=== PATIENT | male | born 1980 | race African-American/Black ===

== ENCOUNTER 2023-01-17 06:48 | Emergency (ER) | payer MEDICARE, SELFPAY ==
[2023-01-17 06:49] VITALS: BP 141/100; PULSE 121; RESP 18; TEMP 36; O2SAT 98; BMI 48.3
--- NOTE | 2023-01-17 07:18 | EDS_ITS ---
HPI History of Present Illness Chief Complaint: Anxiety Informant: patient Narrative Narrative: Patient states he has bad anxiety. I try to get more details from the patient but he really does not share them. He is denying any pain. He states it is just anxiety. When I ask if he has had anxiety before he states I do not know. He is denying suicidal thoughts. He denies vomiting. I have tremendous difficulty getting him to answer what would be a normal set of questions going over his current symptoms review of systems and past history. I did access his online prescribing report and see no controlled substance including no benzodiazepines. I talked to the nursing staff here as this patient came in by EMS before my arrival. But there is evidently no back story or further information. I have no report that he was being aggressive disruptive suicidal or violent. He reportedly called because he was anxious. However, due to his either unwillingness or inability to talk to me and give me details this severely limits my ability to evaluate and treat him. [facility] Medical History Anxiety Home Medications clindamycin HCl 150 mg capsule 300 mg PO 4X/DAY INFECTION ##90 01/30/15 [Rx Last Taken Unknown] hydroxyzine pamoate 25 mg capsule 50 mg (2 x 25 mg) PO TID PRN PRN Anxiety #21 CAPSULES 01/17/23 [Rx Last Taken Unknown] Allergy/AdvReac Type Severity Reaction Status Date / Time Penicillins [PCN] Allergy Unknown Verified 01/30/15 14:10 Social History Smoking Status: Current every day smoker tobacco type: cigarettes ROS ROS ED ROS Narrative Patient really will not answer all my questions. He is denying pain anywhere. He is denying suicidal thoughts. Beyond that I really cannot get a lot of information. When asked about breathing problems he states just anxiety again. Psychiatric Psychiatric: Reports anxiety EXAM Physical Exam Narrative Exam Narrative: Patient is awake alert sitting in bed. He looks comfortable. HEENT shows no sign of trauma. Neck is supple free range of motion Heart is a little bit fast at about 105. Breathing is easy unlabored he has normal saturations at 98% on room air showing no hypoxia. Patient's extremities are covered and he appears to not want me to evaluate that. Psych: Patient does seem to be anxious. He is a bit forceful and borderline aggressive. He is not at all threatening me though. But he seems very upset. He wants something for anxiety. He does not want anything else. Const Vital Signs: 01/17/23 06:49 Temperature 96.8 F L Temperature Source Temporal Pulse Rate 121 H Respiratory Rate 18 Blood Pressure 141/100 H Blood Pressure Mean 113 Pulse Ox 98 Oxygen Delivery Method Room Air MDM MDM MDM Narrative Medical decision making narrative: This patient either unwillingness or inability to give me any history limits my ability to evaluate him. He just wants something for anxiety. He does not want anything else. He is awake he is alert he is talking clearly there is no sign of neurologic deficit. No sign of trouble breathing. He denies any pains anywhere. He does seem anxious. He seems to understand and no anxiety. It sounds like he has had episodes before but I cannot get him to verify that he has been diagnosed with anxiety. I will try a dose of medicines to see if that will help him. I have no reason to hold him in the department. I have no findings of acute medical problem at this time. We will certainly keep an eye on him and do a more comprehensive in history and physical exam if he allows that. I access prior records. He has very few. I do find a nursing report from 06/01/2012 that does mention a history of bipolar. Patient has taken the Ativan. He has gotten up and walked around the department. He went to the restroom. He is awake alert and stable. He did ask for something to eat and drink which we have gotten him. We walked him a bit longer. He now verifies he does have a history of anxiety. He states he just had a bad anxiety attack and there is nothing else going on. Patient is resting quietly is much Colmer feeling better. Discharge Plan Triage Chief Complaint: Anxiety ED Provider: Delfino Salgado Dx/Rx/DC Orders Clinical Impression: Anxiety attack Instructions: ED Panic Attack Prescriptions: New hydroxyzine pamoate [hydroxyzine pamoate] 25 mg capsule 50 mg PO TID PRN PRN (Reason: Anxiety) Qty: 21 0RF No Action clindamycin HCl 150 MG capsule 300 mg PO 4X/DAY Qty: 90 0RF Rx Instructions: Primary Care Provider: Care Physician,Varsha Primary Referrals: Brittany Mccord MD [Med Staff - Active Staff] - 3-5 Days Care Physician,No Primary [Primary Care Provider] - Disposition Disposition: Home, Self Care
--- NOTE | 2023-01-17 07:18 | ED.RN ---
PT UNWILLING TO TALK TO RN OR TO PROVIDER. PERRI REPORTS NO SUICIDAL OR HOMICIDAL IDEATION. PT STATES I AM FUCKING ANXIOUS. DR. DUMONT IN TO TALK TO PT AND PT REFUSES TO TALK
[2023-01-17] MEDS: LORazepam 1 MG Tablet PO (07:27)
--- NOTE | 2023-01-17 07:31 | ED.RN ---
PT DEMANDING FOOD AND DRINK. PT WITH PRESSURED SPEECH AND DEMANDING MULTIPLE THINGS
[2023-01-17 09:23] VITALS: RESP 16
== END 2023-01-17 09:24 | disposition home or self-care (01) ==
PROVIDERS: Emergency Provider Emergency Medicine; Visit Provider Emergency Medicine
DX: F41.9 Anxiety disorder, unspecified (principal); F17.210 Nicotine dependence, cigarettes, uncomplicated
CPT/HCPCS: 99284